=== PATIENT | male | born 1980 | race African-American/Black ===

== ENCOUNTER → 2016-06-25 | Outpatient (CLI) | payer OTHER ==
[2016-05-26 07:45] VITALS: BP 136/79
[~2016-06-25] MED LIST: CYCL5TAB PO; HYDR-971 PO; IOHEXOL 180 MG/ML 10 ML VIAL. ONE; methylPREDNISolone ACETATE 40 MG/ML VIAL. ONE; methylPREDNISolone ACETATE 80 MG/ML VIAL. ONE
--- NOTE | 2016-06-26 12:00 | PAIN ---
DATE OF SERVICE: 06/25/2016 INITIAL CONSULTATION FOR PAIN CLINIC. CHIEF COMPLAINT: Neck and left upper extremity pain. HISTORY OF PRESENT ILLNESS: This is a 36-year-old male, who presents with history of pain for about 2 months, increasing in the base of the neck and left shoulder and arm, not a result of any specific injury or action he is aware of, but it has been getting worse at that time. In the base of the neck, front of the neck, front of the shoulder, back of the shoulder, side of the shoulder was unable to abduct his arm past about 90 degrees from his body on the left side only. The patient reports he has some weakness in the arm, but only in the shoulder and upper arm have some numbness and tingling and pain into the elbow on the left side, but not into the forearm and hand. The patient reports constant stabbing, shooting, sharp, throbbing, tingling with increased activity exacerbates the pain even getting dressed, trying to get his arm up into the sleeve shirt is difficult as well. The patient reports no gross most motor function, but significant weakness noted with the biceps muscle on the left side with lifting items or holding his child. The patient has had no formal physical therapies as doing some stretching on his neck at home on his own without significant improvement. The patient has tried several medications Aleve as well as Arvilla, hydrocodone, cyclobenzaprine, all with only minimal decrease in pain. The patient reports his disability rate of 0 to 10, 10 being the worst, is 0 with all categories except occupation which was 7 on a scale of 10. PAST MEDICAL HISTORY: Significant for previous vasectomy ____ the patient has been in very good health. CURRENT MEDICATIONS: Include hydrocodone, cyclobenzaprine, Aleve and multivitamins. ALLERGIES: The patient has no known drug allergies. FAMILY HISTORY: Significant for arthritis and low back problems in the patient's mother. SOCIAL HISTORY: The patient does not smoke, drinks 1or 2 alcoholic drinks a month on average. He is and lives with his spouse and 4 children at home and lives locally in [place], [place]. Works for ____ industries. REVIEW OF SYSTEMS: The patient's review of systems is positive for those items mentioned in history of present illness. All systems reviewed and otherwise negative. It is complete, full and well documented on the patient's chart. PHYSICAL EXAMINATION: VITAL SIGNS: The patient's blood pressure is 110/82, pulse 64, respirations 16, temperature 97.9 degrees Fahrenheit. Height 6 feet, weight is 169 pounds. GENERAL: The patient is awake, alert, oriented, appropriate, very pleasant demeanor. HEENT: Head shows normocephalic and atraumatic. Extraocular movements are intact and symmetrical. Oral cavity shows mucous membranes moist and pink. Dentition is intact. NECK: Shows anterior throat supple without palpable lymphadenopathy noted. Swallow reflex is symmetrical. CHEST: Shows normal on inspection. Breath sounds are clear to auscultation bilaterally. HEART: Shows S1 and S2 clear. ABDOMEN: Soft, nontender and nondistended. No palpable organomegaly noted. No rebound or guarding demonstrated. BACK: Shows spine grossly in the midline. Cervical lordotic curvature is normal appearing ____ thoracic kyphotic curvature, and lumbar lordotic curvature. The patient has some tattooing on the upper back and shoulders. No previous bruises, lesions, rashes or scars are noted. NECK: Shows moderate tenderness to palpation in the bilateral middle and lower cervical paraspinous musculature, but is symmetrical. On appearance muscle girth is normal, but firm with only some mild tenderness with palpation only diffusely in the paraspinous musculature is true and the superomedial trapezius on the left, but not the right, also into the left deltoid is tender with palpation on the lateral aspect, but not posteriorly. Right side is nontender. The patient shows good rotational motion of cervical spine with some minor limitation and extension secondary to pain, good for flexion. Right and left lateral rotation past 45 degrees is performed without significant difficulty. EXTREMITIES: Upper extremities show deep tendon reflexes at 2+ in the biceps and triceps tendons. Motor exam is approximately 4 on a scale of 5 with left biceps and left lateral deltoid strength about 5/5, otherwise, right side is 5/5. Complete Peripheral pulses are 2+ radial distribution. No peripheral edema is noted. No clubbing, no cyanosis. Upper extremities are warm and dry to touch, equal in color and appearance. Shoulder shrug is strong and intact with some loss of strength on resistance on the left side and some pain reported as well. Likewise, abduction of the shoulder to 90 degrees with loss of strength on resistance with left side, but not with right. IMPRESSION: 1. This is a 36-year-old male with approximately 2-month history of increasing pain base of the neck, left upper extremity in a radicular fashion. 2. MRI scan of cervical spine showing C4-C5, left lateral recess and left foraminal disk protrusion resulting in severe left lateral recess and left neural foraminal stenosis C5-C6, small broad-based posterior disk bulge with superimposed left foraminal disk protrusion extending into the left lateral recess as well with effacement of the exiting left C6 nerve root in the severe left neural foraminal compromise and stenosis. PLAN: Options were discussed with the patient including conservative medical management, physical therapy, interventional techniques he would like to pursue interventional techniques. We discussed a cervical epidural steroid injection with the patient using description as well as anatomical models to describe the procedure. Risks were then discussed including, but not limited to bleeding, infection, possibility of epidural hematoma and subsequent neurologic compromise, dural puncture, headaches, spinal cord and/or nerve damage, side effects of steroid medication and poor results regarding pain control. The patient understands and wishes to proceed. The patient will return to clinic in approximately 2 weeks for followup, was counseled on return appointment, activity level and side effects to be aware of. DIAGNOSES: Cervical radiculopathy, cervical spinal stenosis and cervical herniated disk. PROCEDURE: Cervical epidural steroid injection translaminar approach at C6-C7 level with fluoroscopic guidance under local anesthesia and using sterile prep and drape. MEDICATION INJECTED: Depo-Medrol 120 mg plus 5 mL of preservative-free normal saline and 2 mL of Isovue contrast. CONDITION AT DISCHARGE: Stable. The patient tolerated the procedure well, had no complications. JAY LEÓN MD DR: AYESHA/ebony JOB#: [id number] / [id number]
== END ==
LOC: PNCL 09:17
PROVIDERS: ATTEND Anesthesiology
DX: M50.123 Cervical disc disorder at C6-C7 level with radiculopathy (principal); M48.02 Spinal stenosis, cervical region
CPT/HCPCS: 62321; J1030; J1040

== ENCOUNTER → 2016-07-18 | Outpatient (CLI) | payer OTHER ==
[2016-05-26 07:45] VITALS: BP 136/79
--- NOTE | 2016-07-19 07:55 | PAIN ---
DATE OF SERVICE: 07/18/2016 PROGRESS NOTE DIAGNOSES: Cervical radiculopathy, cervical spinal stenosis, cervical herniated disk. HISTORY OF PRESENT ILLNESS: The patient is a 36-year-old male, who returns for followup status post cervical epidural steroid injection x 1. The patient reports 80%-90% improvement in the left arm and upper extremity and then base of the neck. The patient reports he is able to reach his arm up over his head, now greater ease and comfort as arm is feeling near 100% better, still has some pain in the base of the neck and left shoulder posteriorly and superiorly, but much improved. The patient reports it is aching, stabbing, sometimes throbbing pain in the left shoulder and arm. The patient reports pain as 6 on a scale of 10. Reports no new motor or sensory deficits, no new bowel or bladder incontinence or other complaints. PHYSICAL EXAMINATION: VITAL SIGNS: Today, blood pressure 110/56, pulse 87, respirations 16, temperature 97.9 degrees Fahrenheit. Height 6 feet, weight is 168 pounds. GENERAL: The patient is awake, alert, oriented, appropriate, very pleasant demeanor. HEENT: Head shows normocephalic, atraumatic. Extraocular movements are intact, symmetrical. Oral cavity shows mucous membranes are moist and pink. Dentition is intact. NECK: Shows anterior throat supple without palpable lymphadenopathy noted. Swallow reflex is symmetrical. CHEST: Shows normal on inspection. Breath sounds clear to auscultation bilaterally. HEART: Shows S1 and S2 clear. ABDOMEN: Soft, nontender, nondistended. No palpable organomegaly is noted. BACK: Shows spine grossly midline. Cervical paraspinous musculature shows symmetrical without evidence of atrophy, hypertrophy with palpation, shows some moderate tenderness with palpation in the inferior aspect of cervical paraspinous muscles and more in the left superior medial trapezius on the right, but tender bilaterally, but again symmetrical without evidence of atrophy, hypertrophy, no trigger points, no radiation of pain demonstrated with palpation. The patient has good rotational and motion of cervical spine, both laterally greater than 45 degrees right and left as well as extension and forward flexion at 40 range without difficulty or pain reported. EXTREMITIES: Upper extremity showed deep tendon reflexes at 2+ in the biceps and triceps tendons. Motor exam is strong at 5/5 human relations manager strength, biceps and triceps flexion bilaterally and equal. Options were discussed with the patient. The patient's old chart was reviewed as his current medication regimen updated. Current review of systems updated today as well and we will proceed with a second cervical epidural steroid injection today with fluoroscopic guidance. Risks were again discussed including, but not limited to bleeding, infection, possibility of epidural hematoma, subsequent neurologic compromise, dural puncture, headaches, spinal cord and/or nerve damage, side effects of steroid medication and poor results regarding pain control. The patient understands and wishes to proceed. The patient will return to the clinic in approximately 2 weeks for followup. He was counseled as to return appointment, activity level and side effects to be aware of. DIAGNOSES: Cervical radiculopathy with cervical herniated disk and cervical spinal stenosis. PROCEDURE: Cervical epidural steroid injection with C-arm fluoroscopic guidance and translaminar approach at the C6-C7 level with local anesthetic under sterile prep and drape, medication injected was 120 mg Depo-Medrol plus 5 mL of preservative-free normal saline with contrast 2 mL of Isovue. CONDITION AT DISCHARGE: Stable. The patient tolerated procedure well, had no complications. JAY LEÓN MD DR: AYESHA/ebony JOB#: [id number] / [id number]
== END | disposition home or self-care (01) ==
LOC: PNCL 07:52
PROVIDERS: ATTEND Anesthesiology
DX: M50.123 Cervical disc disorder at C6-C7 level with radiculopathy (principal); M48.02 Spinal stenosis, cervical region
CPT/HCPCS: 62321; J1030; J1040